=== PATIENT | female | born 1960 | race Caucasian/White ===

== ENCOUNTER → 2018-06-07 11:28 | Outpatient (CLI) | payer BC, SELFPAY ==
--- NOTE | 2018-06-07 | DI.MG.S_ITS ---
BILATERAL DIGITAL SCREENING MAMMOGRAM 3D/2D WITH CAD: 06/07/2018 CLINICAL: Routine screening. Comparison is made to exams dated: 05/07/2017 mammogram - [facility], 04/28/2016 mammogram, and 03/11/2015 mammogram - [facility]. The tissue of both breasts is heterogeneously dense. This may lower the sensitivity of mammography. Current study was also evaluated with a Computer Aided Detection (CAD) system. There are benign calcifications in both breasts. No significant masses, calcifications, or other findings are seen in either breast. There has been no significant interval change. IMPRESSION: There is no mammographic evidence of malignancy. A 1 year screening mammogram is recommended. This exam was interpreted at Station ID: [id number]. NOTE: For mammograms, a report in lay terms will be sent to the patient. Approximately 15% of breast malignancies will not be visualized mammographically. In the management of a palpable breast mass, a negative mammogram must not discourage biopsy of a clinically suspicious lesion. Electronically Signed By: Ajay aquino/sylvia:06/07/2018 14:52:58 letter sent: Normal Exam ACR BI-RADS Category 2: Benign Finding(s) 3342F
== END ==
PROVIDERS: PCP Family Medicine
DX: Z12.31 Encounter for screening mammogram for malignant neoplasm of breast (principal)
CPT/HCPCS: 77063; 77067

== ENCOUNTER → 2018-09-27 12:35 | Outpatient (CLI) | payer BC, SELFPAY ==
--- NOTE | 2018-09-27 | DI.RAD.S_ITS ---
PROCEDURE: XR LUMBAR SPINE 2-3V INDICATIONS: BACK PAIN / PELVIC PAIN TECHNIQUE: 3 views of the lumbar spine were acquired. COMPARISON: None. FINDINGS: Bones: No fracture or focal osseous destruction. Multilevel degenerative endplate sclerosis and spurring. Mild narrowing of the L4-L5 and L3-L4 disc spaces. Diffuse facet arthropathy. Lumbar dextrocurvature noted. Mild bilateral hip joint degeneration. Soft tissues: Overlying bowel gas pattern is normal. No suspicious soft tissue calcifications. IMPRESSION: Lumbar dextrocurvature. Mild lumbar spondylosis and facet arthropathy as above, most pronounced at L3-L4 and L4-L5. Dictated by: Huber Joshua M.D. on 09/27/2018 at 13:37 Approved by: Huber Joshua M.D. on 09/27/2018 at 13:39
== END ==
PROVIDERS: PCP Family Medicine; Visit Provider Chiropractor
DX: R10.2 Pelvic and perineal pain (principal); M54.5 Low back pain; M47.816 Spondylosis without myelopathy or radiculopathy, lumbar region; M16.0 Bilateral primary osteoarthritis of hip
CPT/HCPCS: 72100

== ENCOUNTER → 2019-06-09 10:53 | Outpatient (CLI) | payer BC, SELFPAY ==
--- NOTE | 2019-06-09 | DI.MG.S_ITS ---
BILATERAL DIGITAL SCREENING MAMMOGRAM 3D/2D WITH CAD: 06/09/2019 CLINICAL: Routine screening. Comparison is made to exams dated: 06/07/2018 mammogram, 05/07/2017 mammogram - [facility], 04/28/2016 mammogram, 03/11/2015 mammogram, 12/25/2011 mammogram, and 12/23/2010 mammogram - [facility]. The tissue of both breasts is heterogeneously dense. This may lower the sensitivity of mammography. Current study was also evaluated with a Computer Aided Detection (CAD) system. There is an oval asymmetry in the right breast middle depth central to the nipple seen on the craniocaudal view only. There also is an oval asymmetry in the right breast middle depth lateral region seen on the craniocaudal view only. There is an irregular focal asymmetry in the left breast superior medial quadrant in the retroareolar region. There is possible architectural distortion associated with the focal asymmetry. No other significant masses or calcifications are seen in either breast. IMPRESSION: INCOMPLETE: NEEDS ADDITIONAL IMAGING EVALUATION 1) The oval asymmetry in the right breast middle depth central to the nipple seen on the craniocaudal view only is indeterminate. Additional views with possible ultrasound are recommended. 2) The oval asymmetry in the right breast middle depth lateral region seen on the craniocaudal view only is indeterminate. Additional views with possible ultrasound are recommended. 3) The irregular focal asymmetry in the left breast superior medial quadrant in the retroareolar region is indeterminate. Additional views with possible ultrasound are recommended. This exam was interpreted at Station ID: [id number]. NOTE: For mammograms, a report in lay terms will be sent to the patient. Approximately 15% of breast malignancies will not be visualized mammographically. In the management of a palpable breast mass, a negative mammogram must not discourage biopsy of a clinically suspicious lesion. Electronically Signed By: Albert Rangel M.D. ecl/:06/09/2019 17:43:32 copy to: DORCAS ROSA letter sent: Additional Imaging Needed ACR BI-RADS Category 0: Incomplete 3340F
== END ==
PROVIDERS: PCP Family Medicine; Visit Provider Obstetrics & Gynecology
DX: Z12.31 Encounter for screening mammogram for malignant neoplasm of breast (principal)
CPT/HCPCS: 77063; 77067

== ENCOUNTER → 2019-08-17 12:42 | Outpatient (CLI) | payer BC, SELFPAY ==
--- NOTE | 2019-08-17 | DI.MG.S_ITS ---
BILATERAL DIGITAL DIAGNOSTIC MAMMOGRAM 3D/2D WITH ADDITIONAL VIEWS: 08/17/2019 CLINICAL: Additional evaluation requested from prior study. Comparison is made to exams dated: 06/09/2019 mammogram, 06/07/2018 mammogram, and 05/07/2017 mammogram - [facility]. The tissue of both breasts is heterogeneously dense. This may lower the sensitivity of mammography. The asymmetry in the right breast middle depth central to the nipple seen on the craniocaudal view only is not seen in additional views. The asymmetry in the right breast middle depth lateral region seen on the craniocaudal view only is not seen in additional views. The focal asymmetry in the left breast superior medial quadrant in the retroareolar region is not seen in additional views. No other significant masses or calcifications are seen in either breast. IMPRESSION: The asymmetries in the bilateral breasts seen on the screening mammogram likely respresent superimposed fibroglandular tissue and are benign. There is no mammographic evidence of malignancy. A 1 year screening mammogram is recommended. This exam was interpreted at Station ID: [id number]. NOTE: For mammograms, a report in lay terms will be sent to the patient. Approximately 15% of breast malignancies will not be visualized mammographically. In the management of a palpable breast mass, a negative mammogram must not discourage biopsy of a clinically suspicious lesion. Electronically Signed By: Halie Fagan M.D. lk/:08/17/2019 14:51:24 copy to: DORCAS ROSA letter sent: Normal Exam ACR BI-RADS Category 2: Benign Finding(s) 3342F
== END ==
PROVIDERS: PCP Family Medicine; Referring Provider Obstetrics & Gynecology; Visit Provider Obstetrics & Gynecology
DX: R92.8 Other abnormal and inconclusive findings on diagnostic imaging of breast (principal); N64.89 Other specified disorders of breast
CPT/HCPCS: 77066; G0279

== ENCOUNTER → 2020-03-13 13:35 | Outpatient (CLI) | payer BC, SELFPAY ==
--- NOTE | 2020-03-13 | DI.RAD.S_ITS ---
PROCEDURE: XR CHEST 2V INDICATIONS: BURSITIS TECHNIQUE: 2 views of the chest were acquired. COMPARISON: Outside Film, CR, XR CHEST 2 VIEWS, 12/20/2017, 12:23. FINDINGS: Surgical changes and devices: None. Lungs and pleura: Lungs are clear. No pleural effusions or pneumothorax. Mediastinum: Mediastinal contours are normal. Heart size is normal. Bones and chest wall: No suspicious bony abnormalities. Soft tissues appear unremarkable. IMPRESSION: No acute cardiopulmonary disease. Dictated by: Venkat Flanagan [facility] Interpreted: Jono Kraft MD on 03/13/2020 at 16:53 Approved by: Jono Kraft M.D. on 03/13/2020 at 17:37
--- NOTE | 2020-03-13 | DI.RAD.S_ITS ---
PROCEDURE: XR ELBOW RT MIN 3V INDICATIONS: BURSITIS TECHNIQUE: 3 views of the elbow were acquired. COMPARISON: None. FINDINGS: Bones: No fractures or dislocations. No suspicious bony lesions. Soft tissues: No elbow joint effusion. No suspicious soft tissue calcifications. IMPRESSION: No definite radiographic abnormality. If pain persists with conservative management, consider cross sectional imaging such as CT or MRI for further assessment. Dictated by: Venkat Flanagan [facility] Interpreted: Jono Kraft MD on 03/13/2020 at 16:54 Approved by: Jono Kraft M.D. on 03/13/2020 at 17:37
== END ==
PROVIDERS: PCP Family Medicine; Referring Provider Internal Medicine Rheumatology; Visit Provider Internal Medicine Rheumatology
DX: M70.21 Olecranon bursitis, right elbow (principal); D86.3 Sarcoidosis of skin
CPT/HCPCS: 71046; 73080

== ENCOUNTER 2020-03-29 08:52 | Day surgery (SDC) | payer BC, SELFPAY ==
[2020-03-29] VITALS (7 sets, daily range): BP systolic 102–141; BP diastolic 64–86; PULSE 58–66; RESP 12–18; TEMP 36.3–36.4; O2SAT 99–100; BMI 20.7
[2020-03-29] MEDS: SODIUM CHLORIDE 0.9% 1,000 ML 200 ML IV (09:31)
--- NOTE | 2020-03-29 09:50 | P.HP_ITS ---
History of Present Illness History of Present Illness Date Patient Seen: 03/29/20 Time Patient Seen: 09:50 Chief complaint: SDC Narrative: This is a 58-year-old woman with history of hemorrhoids, Edgar- Danlos syndrome, scoliosis, musculoskeletal pain, and family history of advanced colon polyps in her father. She past had a screening colonoscopy in 2014. She says she is on a 5 year cycle because of her father's advanced polyps. On her colonoscopy in 2015 no polyps were found. She is here for follow-up screening colonoscopy ROS: A 13 system review was positive for night sweats, skin lesions, voice hoarseness, cough, reflux symptoms, joint pain, muscle aches, hemorrhoid flares and easy bruising. Thirteen system review is otherwise negative other than as mentioned below and in HPI. PE: GENERAL: Well groomed and cooperative. Appears stated age. Answers questions promptly and appropriately. Vital signs noted. HENT: Normocephalic, atraumatic. Hearing intact. EYES: Conjunctiva pink, sclera white, no periorbital swelling. CARDIOVASCULAR: Regular rate. No pedal edema. RESPIRATORY: Non-tachypneic, breathing comfortably on room air. GASTROINTESTINAL: Abdomen soft and non-distended GENITALURINARY: No flank tenderness. MUSCULOSKELETAL: Equal tone and mass bilaterally. SKIN: Warm, dry, soft, appropriate color for ethnicity. No other lesions, rashes, or wounds. NEURO: Alert and Oriented X 3. No gross sensory deficits, or cognitive issues. PSYCH: Appropriate affect and mood. Patient History Medical History Dupuytren contracture (Acute) Edgar-Danlos syndrome (Acute) Scoliosis (Acute) Surgical History Hx of tonsillectomy (Acute) Family & Social History Family History Father Hypertension Heart disease Cancer Diabetes mellitus Mother Stroke Cancer Social History: household members spouse Tobacco & Substance use: Smoking Status Never smoker alcohol intake current alcohol intake frequency a few times a week Substance Use Type does not use Meds Home Medications and Allergies Home Medications Medication Instructions Recorded Confirmed Type cholecalciferol (vitamin D3) 1,000 unit PO QDAY #0 12/22/16 03/29/20 History [Vitamin D3] multivitamin [Multiple Vitamins] 1 tab PO QDAY #0 12/22/16 03/29/20 History ascorbic acid 125 mg-collagen, 1 cap PO DAILY 02/09/19 03/29/20 History hydrolyzed 740 mg capsule calcium-magnesium 750 mg-465 mg 1 tab PO DAILY 02/09/19 03/29/20 History tablet echinacea 400 mg capsule 400 mg PO DAILY cap 02/09/19 03/29/20 History glucosamine-chondroitin 500 mg-400 1 tab PO TID 02/09/19 03/29/20 History mg tablet turmeric root extract 538 mg 538 mg PO DAILY 02/09/19 03/29/20 History capsule sodium,potassium,mag sulfates 17.5 177 ml PO DAILY #354 ml 03/26/20 03/29/20 Rx gram-3.13 gram-1.6 gram oral soln calcium carbonate-mag hydroxid 2 tab PO Q4H 03/29/20 03/29/20 History [Rolaids] gabapentin 300 mg PO DAILY 03/29/20 03/29/20 History melatonin 5 mg PO BEDTIME PRN 03/29/20 03/29/20 History naproxen sodium [Aleve] 220 mg PO BID PRN 03/29/20 03/29/20 History omega 8-fmm-lri-fish oil [Fish Oil] 1 cap PO DAILY 03/29/20 03/29/20 History omeprazole 20 mg PO DAILY PRN 03/29/20 03/29/20 History Allergies Allergy/AdvReac Type Severity Reaction Status Date / Time Cephalosporins Allergy Unknown Rash Unverified 03/29/20 09:10 [CEPHALOSPORINS] Penicillins [PENICILLINS] Allergy Unknown Rash Unverified 03/29/20 09:10 Exam Vital Signs (past 8 hours): - 03/29/20 09:16 Temperature 97.6 F Pulse Rate 66 Respiratory Rate 15 Blood Pressure 141/86 H Pulse Oximetry 100 Oxygen Delivery Method Room Air Assessment & Plan Assessment and plan (1) Hemorrhoids: Status: Acute (2) Edgar-Danlos syndrome: Status: Acute (3) Family history of colonic polyps: Status: Acute Assessment & Plan narrative: Risks and benefits of screening colonoscopy and possible polypectomy were discussed with the patient including risk of bleeding, perforation, need for additional procedures, risks of anesthesia. The patient desires to proceed with the colonoscopy procedure. COVID-19 COVID-19 status: Negative Result date/Date tested (Pos, Neg/Pending): 03/28/20 Time Spent With Patient Time with patient: 15-24 minutes Quality VTE Deep Vein Thrombosis/Pulmonary Embolism Present on Admission: No
--- NOTE | 2020-03-29 09:52 | PM.OP.ENDO ---
Operative Date/Time/Diagnoses Date of procedure: 03/29/20 Time of procedure: 09:52 Pre-op diagnosis: Family history of advanced colon polyps Post-op diagnosis: other (Normal colon. No polyps) Procedure & Clinicians Study performed: Colonoscopy Procedural sedation performed by the endoscopist Same procedure as scheduled: Yes Indications: Family history of advanced colon polyps Surgeon: Susan Kwon Procedure Notes SCOAP/Timeout: Performed Procedure in detail: The patient was brought to the room and placed in left lateral decubitus position with all bony prominences padded. A time-out was performed and then the patient was given procedural sedation starting with 2 mg of Versed and 100 mcg of fentanyl. A total of 4 mg of Versed and 150 micro g of fentanyl were given for the entire procedure. Vitals were monitored throughout the procedure and remained stable. Once adequately sedated, the procedure was begun. A rectal exam was performed revealing no abnormalities. The colonoscope was then introduced to the rectum and advanced to the cecum in the usual fashion. The colon was quite tortuous, and require multiple maneuvers to reach the cecum safely. The cecum was identified by the appendiceal orifice, the mucosal tri-fold, and the ileocecal valve. The scope was then retracted while rotating side to side and examining each mucosal fold. A few scattered diverticula were seen, but no evidence of active diverticulitis. No colon polyps were seen. At the conclusion of the procedure retroflexion was performed and small grade 1-2 internal hemorrhoids without stigmata of bleeding were seen. The scope was then withdrawn from the rectum the procedure was concluded. The patient tolerated the procedure well and was transferred to the PACU in stable condition. Scope withdrawal time: 8 Sedation minutes: 18 Findings: diverticulosis Specimen(s): none sent Complications: none Impression: Normal colon. Few scattered diverticula Post-procedure Recommendations: Other recommendation (Repeat colonoscopy in 7 years) Follow up: as needed Disposition: PACU
[2020-03-29] MEDS: MIDAZOLAM 5 MG/5 ML VIAL IV ×3 (09:54→09:55)
[2020-03-29] MEDS: fentaNYL 250 MCG/5 ML INJ IV (09:55)
== END 2020-03-29 10:57 | disposition home or self-care (01) ==
PROVIDERS: PCP Family Medicine; Referring Provider Family Medicine; Visit Provider Surgery
PROC: 0DJD8ZZ Inspection of Lower Intestinal Tract, Via Natural or Artificial Opening Endoscopic (ICD-10-PCS; CPT 45378; principal; 2020-03-29 10:00)
DX: Z12.11 Encounter for screening for malignant neoplasm of colon (principal); Z83.71 Family history of colonic polyps; K57.30 Diverticulosis of large intestine without perforation or abscess without bleeding; K64.0 First degree hemorrhoids
CPT/HCPCS: 45378; 99152; J2250; J3010

== ENCOUNTER → 2020-07-02 12:28 | Outpatient (CLI) | payer BC, SELFPAY ==
--- NOTE | 2020-07-02 12:30 | DI.MG.S_ITS ---
BILATERAL DIGITAL SCREENING MAMMOGRAM 3D/2D WITH CAD: 07/02/2020 CLINICAL: Routine screening. Comparison is made to exams dated: 08/17/2019 mammogram, 06/09/2019 mammogram, 06/07/2018 mammogram, and 05/07/2017 mammogram - [facility]. The tissue of both breasts is heterogeneously dense. This may lower the sensitivity of mammography. Current study was also evaluated with a Computer Aided Detection (CAD) system. No significant masses, calcifications, or other findings are seen in either breast. There has been no significant interval change. IMPRESSION: NEGATIVE There is no mammographic evidence of malignancy. A 1 year screening mammogram is recommended. This exam was interpreted at Station ID: [id number]. NOTE: For mammograms, a report in lay terms will be sent to the patient. Approximately 15% of breast malignancies will not be visualized mammographically. In the management of a palpable breast mass, a negative mammogram must not discourage biopsy of a clinically suspicious lesion. Electronically Signed By: Sanket sheehan/sylvia:07/02/2020 12:56:10 copy to: DORCAS ROSA letter sent: Normal Exam ACR BI-RADS Category 1: Negative 3341F
== END ==
PROVIDERS: PCP Family Medicine; Referring Provider Nurse Practitioner Family; Visit Provider Nurse Practitioner Family
DX: Z12.31 Encounter for screening mammogram for malignant neoplasm of breast (principal)
CPT/HCPCS: 77063; 77067

== ENCOUNTER → 2020-11-21 18:50 | Outpatient (CLI) | payer BC, SELFPAY ==
--- NOTE | 2020-11-21 | DI.MRI.S_ITS ---
PROCEDURE: MR ELBOW RT WO CON INDICATIONS: Pain in right elbow TECHNIQUE: Noncontrast coronal proton density fast spin echo and T2 fast spin echo with fat saturation, axial and sagittal T1 spin echo and T2 fast spin echo with fat saturation through the elbow. COMPARISON: [facility], CR, XR ELBOW RT MIN 3V, 03/13/2020, 13:31. FINDINGS: Image quality: Excellent. Lateral structures: The lateral ulnar collateral ligament and radial collateral ligament both appear intact. The overlying common extensor tendon demonstrates mild tendinopathy proximally with minimal peritendinous edema. Medial structures: The ulnar collateral ligament appears intact. The overlying common flexor tendon appears normal. The ulnar nerve appears normal in size and signal within the cubital tunnel. Anterior structures: The biceps and brachialis tendons both appear intact as they insert onto the proximal radius and ulna, respectively. No bicipitoradial bursal fluid. The median and radial neurovascular bundles appear normal; no focal muscle atrophy to suggest nerve impingement. Posterior structures: There is mild tendinopathy of the triceps tendon distally extending to its insertions. There is a small loculated subcutaneous fluid collection dorsal to the olecranon on measuring approximately 1.7 x 0.7 x 1.6 cm with adjacent subcutaneous edema likely representing a bursal collection. Bone and cartilage: No bone marrow contusions or fractures. There is mild bone marrow edema along the dorsal aspect of the olecranon likely representing reactive changes secondary to the adjacent fluid collection. No bony erosions. No osteochondral lesions. IMPRESSION: 1. Small loculated subcutaneous fluid collection dorsal to the olecranon with adjacent subcutaneous edema. Findings likely represent olecranon bursitis. The differential includes a small abscess although this is considered less likely. Recommend correlation clinically. 2. Mild tendinopathy of the distal triceps tendon. 3. Mild bone marrow edema within the dorsal aspect of the olecranon likely representing reactive changes secondary to the probable bursitis. No discrete bony erosions. 4. Mild tendinopathy of the common extensor tendon with minimal peritendinous edema. Dictated by: Ajay Ronquillo M.D. on 11/22/2020 at 8:51 Approved by: Ajay Ronquillo M.D. on 11/22/2020 at 9:04
== END ==
PROVIDERS: PCP Family Medicine; Referring Provider Nurse Practitioner Family; Visit Provider Nurse Practitioner Family
DX: M25.521 Pain in right elbow (principal); M25.421 Effusion, right elbow
CPT/HCPCS: 73221

== ENCOUNTER → 2021-07-17 10:10 | Outpatient (CLI) | payer BC, SELFPAY ==
--- NOTE | 2021-07-17 | DI.MG.S_ITS ---
BILATERAL DIGITAL SCREENING MAMMOGRAM 3D/2D WITH CAD: 07/17/2021 CLINICAL: Routine screening. Family history of breast cancer. Comparison is made to exams dated: 07/02/2020 mammogram, 06/07/2018 mammogram, 05/07/2017 mammogram, and 08/17/2019 mammogram - [facility]. The tissue of both breasts is heterogeneously dense. This may lower the sensitivity of mammography. Current study was also evaluated with a Computer Aided Detection (CAD) system. There are linear fine punctate calcifications in the left breast at 1 o'clock posterior depth. No other significant masses, calcifications, or other findings are seen in either breast. IMPRESSION: INCOMPLETE: NEEDS ADDITIONAL IMAGING EVALUATION The linear fine punctate calcifications in the left breast are indeterminate. Spot magnification and lateral views are recommended. This exam was interpreted at Station ID: [id number]. NOTE: For mammograms, a report in lay terms will be sent to the patient. Approximately 15% of breast malignancies will not be visualized mammographically. In the management of a palpable breast mass, a negative mammogram must not discourage biopsy of a clinically suspicious lesion. Electronically Signed By: Angelica nicole/sylvia:07/17/2021 12:40:10 copy to: DORCAS ROSA letter sent: Additional Imaging Needed ACR BI-RADS Category 0: Incomplete 3340F
== END ==
PROVIDERS: PCP Family Medicine; Referring Provider Family Medicine; Visit Provider Family Medicine
DX: Z12.31 Encounter for screening mammogram for malignant neoplasm of breast (principal); Z80.3 Family history of malignant neoplasm of breast
CPT/HCPCS: 77063; 77067

== ENCOUNTER → 2021-07-23 11:53 | Outpatient (CLI) | payer BC, SELFPAY ==
--- NOTE | 2021-07-23 | DI.MG.S_ITS ---
UNILATERAL LEFT DIGITAL DIAGNOSTIC MAMMOGRAM 3D/2D WITH ADDITIONAL VIEWS: 07/23/2021 CLINICAL: Additional evaluation requested from prior study. Comparison is made to exams dated: 07/17/2021 mammogram, 07/02/2020 mammogram, 08/17/2019 mammogram, 06/09/2019 mammogram, and 06/07/2018 mammogram - [facility]. There are scattered fibroglandular elements in left breast. There are fine punctate calcifications in the left breast at 1 o'clock posterior depth. With additional views, these are less linear and less grouped, more diffusely arranged, and in a configuration very similar to past exams. These are not significantly changed. No other significant masses or calcifications are seen in the breast. IMPRESSION: PROBABLY BENIGN The fine calcifications in the left breast are probably benign. A follow-up left mammogram in 6 months is recommended to demonstrate stability. Findings and recommendations were conveyed to the patient at time of exam. This exam was interpreted at Station ID: [id number]. NOTE: For mammograms, a report in lay terms will be sent to the patient. Approximately 15% of breast malignancies will not be visualized mammographically. In the management of a palpable breast mass, a negative mammogram must not discourage biopsy of a clinically suspicious lesion. Electronically Signed By: Angelica nicole/:07/23/2021 12:32:49 copy to: DORCAS ROSA letter sent: Followup Recommended ACR BI-RADS Category 3: Probably benign 3343F
== END ==
PROVIDERS: PCP Nurse Practitioner Family; Referring Provider Nurse Practitioner Family; Visit Provider Nurse Practitioner Family
DX: R92.8 Other abnormal and inconclusive findings on diagnostic imaging of breast (principal); R92.1 Mammographic calcification found on diagnostic imaging of breast
CPT/HCPCS: 77065; G0279

== ENCOUNTER → 2022-01-15 08:35 | Outpatient (CLI) | payer BC, SELFPAY ==
--- NOTE | 2022-01-15 | DI.MG.S_ITS ---
UNILATERAL LEFT DIGITAL DIAGNOSTIC MAMMOGRAM 3D/2D: 01/15/2022 CLINICAL: Short term follow up for the left breast. Comparison is made to exams dated: 07/23/2021 mammogram, 07/17/2021 mammogram, 07/02/2020 mammogram, and 08/17/2019 mammogram - [facility]. There are scattered areas of fibroglandular density in the left breast (category b / 25%-50% glandular tissue). There are stable diffuse fine punctate calcifications in the left breast at 1 o'clock posterior depth. No other significant masses or calcifications are seen in the breast. IMPRESSION: PROBABLY BENIGN The stable diffuse fine punctate calcifications in the left breast are probably benign. A follow-up mammogram in 6 months is recommended to demonstrate stability. Based on the Tyrer Cuzick model (a risk assessment model) the patient's lifetime risk is 7.9% and her 10 year risk is 3.5%. According to the ACR, ACS, and NCCN guidelines, an annual breast MRI exam along with mammogram is recommended if the patient's lifetime risk is 20% or greater. This exam was interpreted at Station ID: [id number]. NOTE: For mammograms, a report in lay terms will be sent to the patient. Approximately 15% of breast malignancies will not be visualized mammographically. In the management of a palpable breast mass, a negative mammogram must not discourage biopsy of a clinically suspicious lesion. SUMMARY: The patient will be due for her bilateral mammogram at this time. Electronically Signed By: Halie gillespie/:01/15/2022 09:13:29 copy to: DORCAS ROSA letter sent: Followup Recommended ACR BI-RADS Category 3: Probably benign 3343F
== END ==
PROVIDERS: PCP Nurse Practitioner Family; Referring Provider Family Medicine; Visit Provider Family Medicine
DX: R92.1 Mammographic calcification found on diagnostic imaging of breast (principal)
CPT/HCPCS: 77065; G0279

== ENCOUNTER → 2022-09-15 10:11 | Outpatient (CLI) | payer BC, SELFPAY ==
--- NOTE | 2022-09-15 | DI.MG.S_ITS ---
BILATERAL DIGITAL DIAGNOSTIC MAMMOGRAM 3D/2D: 09/15/2022 CLINICAL: Short term follw up, due bilateral. Comparison is made to exams dated: 01/15/2022 mammogram, 07/23/2021 mammogram, 07/17/2021 mammogram, 07/02/2020 mammogram, and 08/17/2019 mammogram - [facility]. There are scattered areas of fibroglandular density in both breasts (category b / 25%-50% glandular tissue). There are stable diffuse fine punctate calcifications in the left breast at 1 o'clock posterior depth. No other significant masses, calcifications, or other findings are seen in either breast. IMPRESSION: PROBABLY BENIGN The stable diffuse fine punctate calcifications in the left breast are probably benign. A follow-up mammogram in 6 months is recommended to demonstrate stability. Based on the Tyrer Cuzick model (a risk assessment model) the patient's lifetime risk is 14.9% and her 10 year risk is 7.1%. According to the ACR, ACS, and NCCN guidelines, an annual breast MRI exam along with mammogram is recommended if the patient's lifetime risk is 20% or greater. This exam was interpreted at Station ID: [id number]. NOTE: For mammograms, a report in lay terms will be sent to the patient. Approximately 15% of breast malignancies will not be visualized mammographically. In the management of a palpable breast mass, a negative mammogram must not discourage biopsy of a clinically suspicious lesion. Electronically Signed By: Halie Fagan M.D. lk/:09/15/2022 10:46:20 copy to: DORCAS ROSA letter sent: Followup Recommended ACR BI-RADS Category 3: Probably benign [id number]
== END ==
PROVIDERS: PCP Nurse Practitioner Family; Referring Provider Nurse Practitioner Family; Visit Provider Nurse Practitioner Family
DX: R92.0 Mammographic microcalcification found on diagnostic imaging of breast
CPT/HCPCS: 77066; G0279

== ENCOUNTER → 2023-03-22 08:35 | Outpatient (CLI) | payer BC, SELFPAY ==
--- NOTE | 2023-03-22 | DI.MG.S_ITS ---
UNILATERAL LEFT DIGITAL DIAGNOSTIC MAMMOGRAM 3D/2D: 03/22/2023 CLINICAL: Short term follow up. Family history breast cancer. Comparison is made to exams dated: 09/15/2022 mammogram, 01/15/2022 mammogram, 07/23/2021 mammogram, 07/17/2021 mammogram, 07/02/2020 mammogram, and 08/17/2019 mammogram - [facility]. There are scattered areas of fibroglandular density in the left breast (category b / 25%-50% glandular tissue). There are stable diffuse round and amorphous calcifications in the left breast at 1 o'clock posterior depth. No other significant masses or calcifications are seen in the breast. IMPRESSION: PROBABLY BENIGN Stable diffuse calcifications in the left breast, stable since 07/23/2021. Findings are probably benign. A follow-up mammogram in 6 months is recommended to demonstrate stability over 2 year stability. Patient will be due for bilateral mammogram at that time. Findings and recommendations were conveyed to the patient during today's evaluation. Based on the Tyrer Cuzick model (a risk assessment model) the patient's lifetime risk is 14.9% and her 10 year risk is 7.1%. According to the ACR, ACS, and NCCN guidelines, an annual breast MRI exam along with mammogram is recommended if the patient's lifetime risk is 20% or greater. This exam was interpreted at Station ID: [id number]. NOTE: For mammograms, a report in lay terms will be sent to the patient. Approximately 15% of breast malignancies will not be visualized mammographically. In the management of a palpable breast mass, a negative mammogram must not discourage biopsy of a clinically suspicious lesion. Electronically Signed By: Isa Chan M.D., PH.D eb/:03/22/2023 09:18:00 copy to: ANTONIO MATUTE letter sent: Additional Imaging Needed ACR BI-RADS Category 3: Probably benign 3343F
== END ==
PROVIDERS: PCP Family Medicine; Referring Provider Family Medicine; Visit Provider Family Medicine
DX: R92.8 Other abnormal and inconclusive findings on diagnostic imaging of breast (principal); Z80.3 Family history of malignant neoplasm of breast; R92.1 Mammographic calcification found on diagnostic imaging of breast
CPT/HCPCS: 77065; G0279

== ENCOUNTER → 2023-09-23 11:37 | Outpatient (CLI) | payer MEDICARE, BC, SELFPAY ==
--- NOTE | 2023-09-23 | DI.MG.S_ITS ---
BILATERAL DIGITAL DIAGNOSTIC MAMMOGRAM 3D/2D: 09/23/2023 CLINICAL: Patient returns for 6 month follow up on left breast for calcifications. Due for Bilateral exam. Comparison is made to exams dated: 03/22/2023 mammogram, 09/15/2022 mammogram, 01/15/2022 mammogram, 07/23/2021 mammogram, 07/17/2021 mammogram, and 07/02/2020 mammogram - [facility]. There are scattered areas of fibroglandular density in both breasts (category b / 25%-50% glandular tissue). There are stable fine punctate calcifications in the left breast at 1 o'clock posterior depth. No other significant masses, calcifications, or other findings are seen in either breast. IMPRESSION: BENIGN There is no mammographic evidence of malignancy. Return to annual mammogram screening schedule is recommended. Based on the Tyrer Cuzick model (a risk assessment model) the patient's lifetime risk is 14.4% and her 10 year risk is 7.1%. According to the ACR, ACS, and NCCN guidelines, an annual breast MRI exam along with mammogram is recommended if the patient's lifetime risk is 20% or greater. This exam was interpreted at Station ID: [id number]. NOTE: For mammograms, a report in lay terms will be sent to the patient. Approximately 15% of breast malignancies will not be visualized mammographically. In the management of a palpable breast mass, a negative mammogram must not discourage biopsy of a clinically suspicious lesion. Electronically Signed By: Halie Fagan M.D. lk/:09/23/2023 12:35:19 copy to: ANTONIO MATUTE letter sent: Normal Exam ACR BI-RADS Category 2: Benign Finding(s) 3342F
== END ==
PROVIDERS: PCP Family Medicine; Referring Provider Family Medicine; Visit Provider Family Medicine
DX: R92.8 Other abnormal and inconclusive findings on diagnostic imaging of breast (principal); R92.323 Mammographic fibroglandular density, bilateral breasts
CPT/HCPCS: 77066; G0279

== ENCOUNTER → 2024-01-27 14:22 | Outpatient (CLI) | payer MEDICARE, BC, SELFPAY ==
--- NOTE | 2024-01-27 14:23 | DI.RAD.S_ITS ---
PROCEDURE: XR DEXA AXIAL SKELETON INDICATIONS: ASSESS BONE DENSITY COMPARISON: [facility], [facility], DEXA AXIAL SKELETON, 05/07/2017, 13:09. FINDINGS: Lumbar Spine: Bone mineral density 0.944 g/cm2, T score -0.9, normal, change from previous-6.7%. Left Hip: Bone mineral density 0. 798 g/cm2, T score -1.2, osteopenia. Change from previous-10.1% Left Femoral Neck: Bone mineral density 0.693 g/cm2, T score -1.4, osteopenia, change from previous-8.8%. Right Hip: Bone mineral density 0.749 g/cm2, T score -1.6, osteopenia, change from previous-10.0%. Right Femoral Neck: Bone mineral density 0.643 g/cm2, T score -1.9, osteopenia, change from previous-8.4%. Fracture Risk Calculation (when applicable): 10-year fracture risk of a major osteoporotic fracture 7.9 % and of a hip fracture 0.9%. (T score greater or equal to -1.0 to: NORMAL) (T score from -1.1 to -2.4: OSTEOPENIA) (T score less than or equal to -2.5: OSTEOPOROSIS) IMPRESSION: Dissimilar scan types prevent statistical comparison of current and prior exams. Subjectively, there is been a considerable loss in bone mineral density in all scanned portions and risk of fracture has increased from 3.6% to 7.9% the patient is osteopenic. Follow-up guidelines as follows: Osteoporosis: Consider a repeat DEXA and Vertebral Fracture Assessment (VFA) exam in 2 years or sooner if medically necessary, to reassess this patient's status. Osteopenia: Consider a repeat DEXA in 2-3 years to reassess this patient's status, or if there is a new clinical indication. Normal: Consider a repeat DEXA in 5 years or sooner, or if there is a new clinical indication. All treatment decisions require clinical judgment and consideration of individual patient factors, including patient preferences, comorbidities, previous drug use, risk factors not captured in the FRAX model (e.g., frailty, falls, vitamin D deficiency, increased bone turnover, interval significant decline in bone density ) and possible under- or over-estimation of fracture risk by FRAX. In addition, the NOF Guide recommends that FDA-approved medical therapies be considered in postmenopausal women and men age >= 50 years with a: * Hip or vertebral (clinical or morphometric) fracture * T-score of <=-2.5 at the spine or hip * Ten-year fracture probability by FRAX of >= 3% for hip fracture or >=20% for major osteoporotic fracture. People with diagnosed cases of osteoporosis or at high risk for fracture should have regular bone mineral density tests. For patients eligible for Medicare, routine testing is allowed once every 2 years. The testing frequency can be increased to one year for patients who have rapidly progressing disease, those who are receiving or discontinuing medical therapy to restore bone mass, or have additional risk factors. Dictated by: Angelica Marsh M.D. on 01/27/2024 at 17:59 Approved by: Angelica Marsh M.D. on 01/27/2024 at 18:04
== END ==
LOC: RAD 14:23
PROVIDERS: PCP Family Medicine; Referring Provider Family Medicine; Visit Provider Family Medicine
DX: Z78.0 Asymptomatic menopausal state (principal); M85.89 Other specified disorders of bone density and structure, multiple sites
CPT/HCPCS: 77080

== ENCOUNTER → 2024-02-29 12:05 | Outpatient (CLI) | payer MEDICARE, BC, SELFPAY ==
--- NOTE | 2024-02-29 12:06 | DI.ECHO.S_ITS ---
[facility] : : [id number] : : [place] : : [id number] : : Phone: [phone] Echocardiogram Report + + :Name: GAGAN HSU Study Date: 02/29/2024 Height: 65.5 in : :[facility] ReadingLocation: Weight: 120 lb : : Gender: Female BSA: 1.6 m2 : :: 1960 Age: 63 yrs BP: 152/100 mmHg: :Reason For Study: FAMILY HISTORY OF HEART DISEASE : :Ordering Physician: ANTONIO MATUTE : :E Performed By: Hillary Key : :Referring: ANTONIO MATUTE E : + + Interpretation Summary 1) Normal left ventricular thickness, size, wall motion, and systolic function (EF 60-65%). 2) Normal right ventricular size and function. 3) There is prolapse of the posterior mitral valve leaflet(s). There is mild mitral regurgitation. 4) No prior Echo available for comparison. Procedure: A two-dimensional transthoracic echocardiogram with color flow and Doppler was performed. The study quality was technically adequate. There is no prior echocardiogram noted for this patient. The patient was in sinus rhythm with heart rates between 49-75 bpm during the exam. Left Ventricle: The left ventricle is normal in size and wall thickness. The ejection fraction is estimated to be 55-60%. Left ventricular systolic function appears normal without focal wall motion abnormalities. Right Ventricle: The right ventricle is normal in size and function. Atria: The left atrium grossly appears normal in size. Right atrial size is normal. There is no Doppler evidence for an interatrial shunt. Mitral Valve: The mitral valve leaflets appear mildly thickened, but open well. There is prolapse of the posterior mitral valve leaflet(s). There is mild mitral regurgitation. Aortic Valve: The aortic valve is trileaflet. The aortic valve opens well. There is no aortic valve stenosis. There is trace aortic regurgitation. Tricuspid Valve: The tricuspid valve is normal in structure and function. There is mild tricuspid regurgitation. The right ventricular systolic pressure is estimated to be at least 23 mmHg based on an estimated right atrial pressure of 3 mm Hg. Pulmonic Valve: The pulmonic valve leaflets are thin and pliable; valve motion is normal. There is mild to moderate pulmonic regurgitation. Great Vessels: The aortic root is normal size. The dimensions of the ascending aorta are normal. The IVC is of normal diameter and collapses greater than 50% with a sniff. This suggests a low right atrial pressure of 3 mm Hg. Pericardium/ Pleura There is no pericardial effusion. There is no pleural effusion. MMode/2D Measurements & Calculations LVIDd: 3.9 cm LVOT diam: 2.0 cm LVIDs: 2.8 cm Ao root diam: 3.3 cm FS: 27.5 % asc Aorta Diam: 3.2 cm IVSd: 0.61 cm Ao Arch Diam (Prox Trans): 2.3 cm LVPWd: 0.74 cm LV mcneil. diameter/BSA (cm/m^2): 2.4 LV sys. diameter/BSA (cm/m^2): 1.7 LA A4 area: 11.1 cm2 RA long axis: 3.4 cm LA length (vol): 3.7 cm RA area: 11.2 cm2 RA vol: 31.3 ml RA : 19.5 ml/m2 IVC diam: 1.4 cm RVD1 (basal): 3.4 cm RVD2 (mid): 3.0 cm TAPSE: 1.9 cm Doppler Measurements & Calculations Ao V2 max: 85.3 cm/sec LVOT Max Casey: 71.6 cm/sec Ao V2 mean: 60.5 cm/sec LV V1 max P.1 mmHg Ao max P.9 mmHg LV V1 VTI: 16.6 cm Ao mean P.6 mmHg KAIT(I,D): 2.9 cm2 Ao V2 VTI: 18.4 cm KAIT(V,D): 2.7 cm2 sev ratio: 0.90 KAIT indexed to BSA (cm^2/m^2): 1.8 MV E max casey: 52.8 cm/sec TR max casey: 225.5 cm/sec MV A max casey: 37.2 cm/sec TR max P.3 mmHg MV E/A: 1.4 PA V2 max: 64.6 cm/sec Med Peak E' Casey: 4.6 cm/sec PA V2 mean: 46.7 cm/sec E/E' med: 11.5 PA mean P.96 mmHg Lat Peak E' Casey: 5.6 cm/sec PA pr(Accel): 25.9 mmHg E/E' lat: 9.4 E/e' average: 10.5 MV dec time: 0.22 sec SV(LVOT): 53.6 ml Reading Physician:05:13 PM
== END ==
LOC: ECHO 12:05
PROVIDERS: PCP Family Medicine; Referring Provider Family Medicine; Visit Provider Family Medicine
DX: I08.1 Rheumatic disorders of both mitral and tricuspid valves (principal); Z82.49 Family history of ischemic heart disease and other diseases of the circulatory system; Z82.79 Family history of other congenital malformations, deformations and chromosomal abnormalities
CPT/HCPCS: 93306